=== PATIENT | male | born 1950 | race Caucasian/White ===

== ENCOUNTER → 2017-12-31 | Outpatient (CLI) | payer MEDICARE, OTHER ==
[~2017-12-31] MED LIST: GADOBENATE DIMEGLUMINE 1 ML IV ONE
[2017-12-31 10:13] LABS: CREATININE, SERUM 1.21 mg/dL (0.72-1.25)
--- NOTE | 2017-12-31 12:34 | Diagnostic Imaging Report ---
PROCEDURE: MRCP WITH AND WITHOUT CONTRAST TECHNIQUE: MR abdomen without and with contrast was performed. Additional MRCP sequences were performed. Contrast: 15 mL MultiHance COMPARISON: None. INDICATIONS: Choledocholithiasis FINDINGS: LUNG BASES: Small sliding hiatal hernia. LIVER: Significant loss of signal in phase imaging consistent diffuse hepatic steatosis. No focal hepatic lesions. BILIARY: No ductal dilatation or filling defect. Common bile that measures 0.8 cm. PANCREAS: No ductal dilatation. 1.0 cm nonenhancing T2 hyperintense cyst in the uncinate process (series 6 image 33). SPLEEN: No splenomegaly. ADRENALS: No nodules. KIDNEYS: No hydronephrosis or mass in the imaged portion of the kidneys. 1.0 cm cyst in the medial aspect of the left kidney. PERITONEUM / RETROPERITONEUM: No upper abdominal free fluid. LYMPH NODES: No upper abdominal lymphadenopathy. VESSELS: Unremarkable. GI: At least 2-3 identifiable duodenal diverticulum off the second segment of the duodenum. The diverticulum measures at least 3.5 cm, 2.2 cm, and 3.3 cm. These may interconnect. BONES AND SOFT TISSUES: Unremarkable. IMPRESSION: 1. Severe diffuse hepatic steatosis. 2. Normal common bile duct. 3. 3 duodenal diverticula off the second segment of the duodenum. 4. 1.0 cm T2 hyperintense cyst in the uncinate process of the pancreas. Alternatively this could represent another small duodenal diverticulum. Recommend one year follow up. Dictated by: Medardo Bey M.D. on 12/31/2017 at 12:36 Electronically approved by: Medardo Bey M.D. on 12/31/2017 at 12:36
== END ==
LOC: MRI 09:21
PROVIDERS: ATTEND Internal Medicine Gastroenterology
DX: K80.20 Calculus of gallbladder without cholecystitis without obstruction (principal); K76.0 Fatty (change of) liver, not elsewhere classified; K44.9 Diaphragmatic hernia without obstruction or gangrene
CPT/HCPCS: 36415; 74183; 82565; 84520

== ENCOUNTER → 2021-06-07 | Outpatient (CLI) | payer MEDICARE | LOC: MRI 12:41 | PROVIDERS: ATTEND Physical Medicine & Rehabilitation Pain Medicine | DX: M54.16 Radiculopathy, lumbar region (principal) | CPT/HCPCS: 72148; 72195 ==

== ENCOUNTER → 2021-09-12 | Outpatient (CLI) | payer MEDICARE ==
[~2021-09-12] MED LIST changes: -GADOBENATE DIMEGLUMINE 1 ML IV ONE; +IOPAMIDOL 370 MG/ML 200 ML INFUS..BTL INJ ONE; +SODIUM CHLORIDE 0.9% 50ML 50 ML ONE
[2021-09-12 08:48] LABS: CREATININE, SERUM 0.98 mg/dL (0.72-1.25)
== END ==
LOC: CT 07:42
PROVIDERS: ATTEND Internal Medicine
DX: Z12.11 Encounter for screening for malignant neoplasm of colon (principal); K86.2 Cyst of pancreas; R19.4 Change in bowel habit; E11.9 Type 2 diabetes mellitus without complications; I10 Essential (primary) hypertension; Z87.891 Personal history of nicotine dependence
CPT/HCPCS: 36415; 74170; 82565; 84520; Q9967

== ENCOUNTER → 2023-09-15 | Outpatient (REF) | payer MEDICARE | LOC: RAD 13:03 | PROVIDERS: ATTEND Internal Medicine Geriatric Medicine | DX: Z01.818 Encounter for other preprocedural examination (principal) | CPT/HCPCS: 93005 ==